=== PATIENT | female | born 1985 | race Caucasian/White ===

== ENCOUNTER 2017-11-26 18:05 | Emergency (ER) | payer OTHER ==
[~2017-11-26] VITALS: Ht 147.3 cm; Wt 46.2 kg
[2017-11-26 18:12] VITALS: TEMP 36.9; Ht 147.3 cm; Wt 46.2 kg
[2017-11-26] MEDS ORDERED: ACETAMINOPHEN 500 MG TAB PO STA (19:58)
[2017-11-26 20:06] VITALS: O2SAT 97
[2017-11-26] MEDS ORDERED: OPTIRAY 320 IV PRN (20:15)
[2017-11-26 20:30] LABS: ISTAT CREATININE 0.5 mg/dl (0.6-1.3); ISTAT IONIZED CALCIUM 1.13 mmol/l (1.12-1.32); ISTAT POTASSIUM 3.8 mEq/L (3.3-5.0)
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
[2017-11-26 23:45] VITALS: BP 104/79; PULSE 80; O2SAT 99
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
== END 2017-11-27 01:03 | disposition home or self-care (01) ==
LOC: C.EDD 18:09
DX: T14.8XXA Other injury of unspecified body region, initial encounter (principal); V87.7XXA Person injured in collision between other specified motor vehicles (traffic), initial encounter